=== PATIENT | female | born 1945 | race Asian ===

== ENCOUNTER 2022-07-08 19:42 | Emergency (ER) | payer OTHER ==
[~2022-07-08] VITALS: Ht 147.3 cm; Wt 35.5 kg
[2022-07-08 19:44] VITALS: BP 165/79
[2022-07-08 20:57] LABS: APPEARANCE,URINE HAZY (CLEAR); BILIRUBIN,URINE NEGATIVE (NEGATIVE); GLUCOSE, URINE (UA) NEGATIVE (NEGATIVE); KETONES,URINE NEGATIVE (NEGATIVE); LEUKOCYTE ESTERASE ,URINE LARGE (NEGATIVE); NITRATE,URINE NEGATIVE (NEGATIVE); OCCULT BLOOD,URINE LARGE (NEGATIVE); PH,URINE 7.5 (5.0-8.0); PROTEIN,URINE 30-70 mg/dL (NEGATIVE); RBC,URINE 51-100 /HPF (0-2); SPECIFIC GRAVITIY, URINE 1.005 (1.003-1.030); UROBILINOGEN,URINE <=1.0 mg/dL (<=1.0); WBC,URINE 26-50 /HPF (0-5)
[2022-07-08 20:58] LABS: BACTERIA,URINE Few /HPF (None Seen)
[2022-07-08] MEDS ORDERED: CEPHALEXIN MONOHYDRATE 500 MG CAPSULE PO ONE (22:45)
[2022-07-08] MEDS ORDERED: CEPH-558 PO (22:58)
== END 2022-07-08 23:46 | disposition home or self-care (01) ==
LOC: EDSEX 19:52 → EMS 19:52
DX: N39.0 Urinary tract infection, site not specified (principal)
CPT/HCPCS: 81001; 87086; 99283